=== PATIENT | female | born 1975 | race Caucasian/White ===

== ENCOUNTER 2023-05-02 12:03 | Outpatient (CLI) | payer BC ==
[2023-05-02] MEDS ORDERED: Iopamidol 370 76% 100 ML VIAL ONE (13:48)
== END 2023-05-02 12:04 | disposition home or self-care (01) ==
LOC: CSHCT 12:03
PROVIDERS: ATTEND Neurological Surgery
DX: S12.031D Nondisplaced posterior arch fracture of first cervical vertebra, subsequent encounter for fracture with routine healing (principal); S15.1 Injury of vertebral artery; S22.42XD Multiple fractures of ribs, left side, subsequent encounter for fracture with routine healing; S42.002D Fracture of unspecified part of left clavicle, subsequent encounter for fracture with routine healing; S42.102D Fracture of unspecified part of scapula, left shoulder, subsequent encounter for fracture with routine healing; S12.090D Other displaced fracture of first cervical vertebra, subsequent encounter for fracture with routine healing
CPT/HCPCS: 70496; 70498